=== PATIENT | female | born 1960 | race Caucasian/White ===

== ENCOUNTER 2019-04-30 16:28 | Emergency (ER) | payer OTHER, SELFPAY ==
--- NOTE | 2019-04-30 16:56 | ER ---
Nurse's Notes [facility] Name: Claribel Cuellar Age: 58 yrs Sex: Female : 1960 Arrival Date: 04/30/2019 Time: 16:29 Bed Waiting Private MD: Diagnosis: Presentation: 04/30 16:54 Note Patient states that her nose bleed has stopped so she is going to leave. aj1 ED Course: 16:29 Patient arrived in ED. as Administered Medications: No medications were administered Outcome: 16:55 Patient left the ED. aj1 Signatures: Lana Leonard RN RN aj1 Kerry Gupta
== END 2019-04-30 16:55 | disposition left against medical advice (07) ==
LOC: ER 16:28
DX: Z02.9 Encounter for administrative examinations, unspecified (principal); Z53.21 Procedure and treatment not carried out due to patient leaving prior to being seen by health care provider

== ENCOUNTER 2019-07-06 15:57 | Emergency (ER) | payer OTHER ==
--- OUTSIDE RECORDS SUMMARY | 2019-07-06 15:59 | XMS REPORT ---
:1960 Author Organization eClinicalWorks Care Team Providers Name Role Phone Mo Rigoberto Provider Role Unavailable Allergies, Adverse Reactions, Alerts Substance Reaction Event Type N.K.D.A. Info Not Available Non Drug Allergy Problems Problem Type Condition Code Onset Dates Condition Status Assessment Hyperlipidemia, mixed E78.2 Active Problem BMI 35.0-35.9,adult Z68.35 Active Problem Vitamin D deficiency E55.9 Active Problem Chronic cough R05 Active Problem Current moderate episode of major F32.1 Active depressive disorder without prior episode Problem Nicotine dependence, unspecified, F17.200 Active uncomplicated Problem Hot flashes due to surgical N95.8 Active menopause Problem Epistaxis R04.0 Active Problem Hyperlipidemia, mixed E78.2 Active Assessment Patient noncompliant with statin Z91.14 Active medication Assessment Encounter for dietary counseling Z71.3 Active and surveillance Assessment Hot flashes due to surgical N95.8 Active menopause Assessment Nicotine dependence, unspecified, F17.200 Active uncomplicated Assessment Current moderate episode of major F32.1 Active depressive disorder without prior episode Assessment Vitamin D deficiency E55.9 Active Assessment BMI 35.0-35.9,adult Z68.35 Active Medications Medication Code Code Instructions Start End Status Dosage System Date Date Vitamin D-3 [facility] 89837350791 1000 UNIT Active 1 capsule Orally Once a day Venlafaxine HCl [facility] 89941604946 75 MG Orally Active 2 tablet Once a day with food Vitamin B-12 [facility] 24402912001 100 MCG Orally Active not defined Multivitamin [facility] 15748042865 - Orally Active not Adult defined Lipitor [facility] 17740561574 40 MG Orally Active 1 tablet Once a day Qsymia [facility] 41615365335 15-92 MG Orally Nov 14, Active 1 capsule Once a day 2019 Results No Known Results Summary Purpose eClinicalWorks Submission
--- OUTSIDE RECORDS SUMMARY | 2019-07-06 15:59 | XMS REPORT ---
:1960 Author Organization eClinicalWorks Care Team Providers Name Role Phone HassanLoraineh Provider Role Unavailable Allergies, Adverse Reactions, Alerts [...] Status Dosage System Date Date Vitamin D-3 [facility] 19685151704 1000 UNIT Active 1 capsule Orally Once a day Vitamin B-12 [facility] 02171335215 100 MCG Orally Active not defined Lipitor [facility] 12447981828 40 MG Orally Active 1 tablet Once a day Venlafaxine HCl [facility] 52876413225 75 MG Orally Active 2 tablet Once a day with food Multivitamin [facility] 01074968508 - Orally Active not Adult defined Qsymia [facility] 05802562090 15-92 MG Orally Active 1 capsule Once a day Results No Known Results Summary Purpose eClinicalWorks Submission
--- NOTE | 2019-07-06 16:38 | ER ---
Nurse's Notes [facility] Name: Claribel Cuellar Age: 58 yrs Sex: Female : 1960 Arrival Date: 07/06/2019 Time: 16:00 Bed 5 Private MD: Rigoberto Hassan Diagnosis: Tension-type headache;Neck pain Presentation: 07/06 16:09 Presenting complaint: Patient states: i have had a pain in my neck Wednesday like i pulled tw2 a muscle, but it feels like it has moved up into my head, nothing seems to take it away, except sleeping, my doctor told me to come here to do imaging if i needed it, i just have my last treatment done on my veins, injections on the veins last Wednesday. Transition of care: patient was not received from another setting of care. Onset of symptoms was July 06, 2019. Risk Assessment: Do you want to hurt yourself or someone else? Patient reports no desire to harm self or others. Initial Sepsis Screen: Does the patient meet any 2 criteria? No. Patient's initial sepsis screen is negative. Does the patient have a suspected source of infection? No. Patient's initial sepsis screen is negative. Care prior to arrival: None. 16:09 Method Of Arrival: Ambulatory tw2 16:09 Acuity: KATHIE 3 tw2 16:11 Presenting complaint: Patient states: i take something for hot flashed for my tw2 menopause, i dont know if my hormones are out of whack or what and if that is causing it. 16:12 Presenting complaint: Patient states: i also feel like my head is real heavy like, i tw2 dont really know how to explain it. Triage Assessment: 16:10 General: Appears uncomfortable, well groomed, Behavior is calm, cooperative, tw2 appropriate for age. Pain: Complains of pain in right side of neck and back of head and up to the front of my head. Historical: - Allergies: 16:14 No Known Allergies; tw2 - Home Meds: 16:14 Effexor 150 mg Oral daily [Active]; simvastatin 20 mg Oral tab 1 tab once daily tw2 [Active]; - PMHx: 16:14 Migraines; Hyperlipidemia; tw2 - PSHx: 16:14 endometrial ablation; tw2 - Immunization history:: Adult Immunizations. - Social history:: Smoking status: . - Ebola Screening: : Patient denies travel to an Ebola-affected area in the 21 days before illness onset. Screenin:16 Abuse screen: Denies threats or abuse. Nutritional screening: No deficits noted. tw2 Tuberculosis screening: No symptoms or risk factors identified. Fall Risk None identified. Assessment: 16:20 General: Appears in no apparent distress. uncomfortable, Behavior is calm, cooperative, jl7 appropriate for age. Pain: Complains of pain in neck Pain currently is 9 out of 10 on a pain scale. Neuro: Level of Consciousness is awake, alert, obeys commands, Oriented to person, place, time, situation. Cardiovascular: Patient's skin is warm and dry. Respiratory: Airway is patent Respiratory effort is even, unlabored, Respiratory pattern is regular, symmetrical. Derm: Skin is pink, warm \T\ dry. Vital Signs: 16:11 BP 111 / 97; Pulse 82; Resp 17; Temp 97.5(TE); Pulse Ox 97% on R/A; Weight 86.18 kg tw2 (R); Height 5 ft. 4 in. (162.56 cm) (R); Pain 9/10; 16:11 Body Mass Index 32.61 (86.18 kg, 162.56 cm) tw2 ED Course: 16:00 Patient arrived in ED. mr 16:00 Rigoberto Hassan DO is Private Physician. mr 16:10 Triage completed. tw2 16:10 Arm band placed on. tw2 16:15 Jack Patino FNP-C is [facility]. la1 16:15 Renny Howell MD is Attending Physician. la1 16:16 Bed in low position. Call light in reach. tw2 16:19 Marie Cesar RN is Primary Nurse. jl7 16:46 No provider procedures requiring assistance completed. Patient did not have IV access jl7 during this emergency room visit. Administered Medications: No medications were administered Outcome: 16:36 Discharge ordered by . la1 16:44 Patient left the ED. la1 16:46 Discharged to home ambulatory. jl7 16:46 Condition: stable 16:46 Discharge instructions given to patient, family, Instructed on discharge instructions, follow up and referral plans. medication usage, Demonstrated understanding of instructions, follow-up care, medications, Prescriptions given X 1. Signatures: Prisca Pedraza, Jack, MEDICAL EXAMINER-C MEDICAL EXAMINER-Cla1 Patria Sanchez RN RN tw2 Marie Cesar RN RN jl7 Corrections: (The following items were deleted from the chart) 16:12 16:11 BP 111 / 97; Pulse 82bpm; Resp 17bpm; Pulse Ox 97% RA; Temp 97.5F Temporal; tw2 tw2
--- NOTE | 2019-07-06 16:38 | EDPHYS ---
Physician Documentation [facility] Name: Claribel Cuellar Age: 58 yrs Sex: Female : 1960 Arrival Date: 07/06/2019 Time: 16:00 Bed 5 Private MD: Loraine Hassanh ED Physician Renny Howell HPI: 07/06 16:30 This 58 yrs old Female presents to ER via Ambulatory with complaints of Neck la1 Problem, Headache. 16:30 The patient or guardian complains of pain, that is acute. The symptoms are located on la1 the right trapezius. Onset: The symptoms/episode began/occurred 3 day(s) ago. Context: The problem was sustained at home, The neck injury/problem resulted from from unknown cause. Associated signs and symptoms: Pertinent positives: headache, Pertinent negatives: chills, constipation, fever, bladder incontinence, bowel incontinence, nausea, numbness, tingling, vomiting, weakness. Location: posterior cervical area. Modifying factors: The symptoms are alleviated by nothing. the symptoms are aggravated by movement. Severity of symptoms: At their worst the symptoms were mild, in the emergency department the symptoms are unchanged. The patient has not experienced similar symptoms in the past. Pt reports right trapezius pain that has now radiated to the base of her skull. Historical: - Allergies: 16:14 No Known Allergies; tw2 - Home Meds: 16:14 Effexor 150 mg Oral daily [Active]; simvastatin 20 mg Oral tab 1 tab once daily tw2 [Active]; - PMHx: 16:14 Migraines; Hyperlipidemia; tw2 - PSHx: 16:14 endometrial ablation; tw2 - Immunization history:: Adult Immunizations. - Social history:: Smoking status: . - Ebola Screening: : Patient denies travel to an Ebola-affected area in the 21 days before illness onset. ROS: 16:31 Constitutional: Negative for fever, chills, and weight loss, Eyes: Negative for injury, la1 pain, redness, and discharge, ENT: Negative for injury, pain, and discharge, Neck: + for trapezius pain Cardiovascular: Negative for chest pain, palpitations, and edema, Respiratory: Negative for shortness of breath, cough, wheezing, and pleuritic chest pain, Abdomen/GI: Negative for abdominal pain, nausea, vomiting, diarrhea, and constipation, Back: Negative for injury and pain, MS/Extremity: Negative for injury and deformity, Neuro: Negative for headache, weakness, numbness, tingling, and seizure. Exam: 16:32 Constitutional: This is a well developed, well nourished patient who is awake, alert, la1 and in no acute distress. Head/Face: Normocephalic, atraumatic. ENT: Nares patent. No nasal discharge, no septal abnormalities noted. Mucous membranes moist. 16:32 Chest/axilla: Normal chest wall appearance and motion. Nontender with no deformity. No lesions are appreciated. Cardiovascular: Regular rate and rhythm with a normal S1 and S2. No gallops, murmurs, or rubs. Normal PMI, no JVD. No pulse deficits. Respiratory: Lungs have equal breath sounds bilaterally, clear to auscultation No rales, rhonchi or wheezes noted. No increased work of breathing, no retractions or nasal flaring. Abdomen/GI: Soft, non-tender, with normal bowel sounds. No distension or tympany. No guarding or rebound. No evidence of tenderness throughout. Back: No spinal tenderness. No costovertebral tenderness. Full range of motion. MS/ Extremity: Pulses equal, no cyanosis. Neurovascular intact. Full, normal range of motion. Neuro: Awake and alert, GCS 15, oriented to person, place, time, and situation. Cranial nerves II-XII grossly intact. Motor strength 5/5 in all extremities. Sensory grossly intact. Cerebellar exam normal. Normal gait. 16:32 Neck: External neck: tenderness, of the right mid cervical area and right trapezius, C-spine: appears grossly normal, no acute changes, Trachea: is midline with no obvious abnormalities. Vital Signs: 16:11 BP 111 / 97; Pulse 82; Resp 17; Temp 97.5(TE); Pulse Ox 97% on R/A; Weight 86.18 kg tw2 (R); Height 5 ft. 4 in. (162.56 cm) (R); Pain 9/10; 16:11 Body Mass Index 32.61 (86.18 kg, 162.56 cm) tw2 MDM: 16:15 Patient medically screened. la1 16:33 Data reviewed: vital signs, nurses notes, I have discussed the patient's la1 presentation/case with the attending Emergency Department Physician; and as a result, I will discharge patient. Data interpreted: Pulse oximetry: on room air is 97 %. Interpretation: normal. Counseling: I had a detailed discussion with the patient and/or guardian regarding: the historical points, exam findings, and any diagnostic results supporting the discharge/admit diagnosis, the need for outpatient follow up, a family practitioner. ED course: Pt without concerning focal neurological complaints, denies hx of CA, prolonged steroid use, IV drug use, no midline C-spine tenderness, tenderness to right trapezius area. . Administered Medications: No medications were administered Disposition: 16:54 Co-signature as Attending Physician, Renny Howell MD I agree with the assessment and kdr plan of care. Disposition: 07/06/19 16:36 Discharged to Home. Impression: Tension-type headache, Neck pain. - Condition is Stable. - Discharge Instructions: Muscle Cramps and Spasms, Muscle Pain, Adult. - Prescriptions for Robaxin 500 mg Oral Tablet - take 2 tablets by ORAL route every 6 hours As needed; 25 tablet. - Medication Reconciliation Form, Thank You Letter form. - Follow up: Private Physician; When: 2 - 3 days; Reason: Recheck today's complaints, Re-evaluation by your physician. - Problem is new. - Symptoms are unchanged. Signatures: Renny Howell MD MD [facility] Jack Patino, VP PATIENT-C VP PATIENT-Cla1 Patria Sanchez RN RN tw2 Corrections: (The following items were deleted from the chart) 16:44 16:36 07/06/2019 16:36 Discharged to Home. Impression: Tension-type headache; Neck la1 pain. Condition is Stable. Forms are Medication Reconciliation Form, Thank You Letter, Antibiotic Education, Prescription Opioid Use. Follow up: Private Physician; When: 2 - 3 days; Reason: Recheck today's complaints, Re-evaluation by your physician. Problem is new. Symptoms are unchanged. la1
[2019-07-06 17:08] VITALS: BP 111/97; TEMP 97.5; O2SAT 97
== END 2019-07-06 16:44 | disposition home or self-care (01) ==
LOC: ER 15:57
DX: G44.209 Tension-type headache, unspecified, not intractable (principal); M54.2 Cervicalgia
CPT/HCPCS: 99282

== ENCOUNTER 2020-03-01 11:28 | Emergency (ER) | payer OTHER ==
--- OUTSIDE RECORDS SUMMARY | 2020-03-01 12:30 | XMS REPORT ---
:1960 Author Organization eClinicalWorks Care Team Providers Name Role Phone Mo Rigoberto Provider Role Unavailable Allergies, Adverse Reactions, Alerts Substance Reaction Event Type N.K.D.A. Info Not Available Non Drug Allergy Problems Problem Type Condition Code Onset Dates Condition Statu s Problem Hot flashes due to surgical N95.8 Active menopause Problem BMI 35.0-35.9,adult Z68.35 Active Problem Current moderate episode of major F32.1 Active depressive disorder without prior episode Problem Vitamin D deficiency E55.9 Active Problem Generalized anxiety disorder F41.1 Active Problem Hyperlipidemia, mixed E78.2 Active Problem Nicotine dependence, unspecified, F17.200 Active uncomplicated Problem Chronic cough R05 Active Problem Epistaxis R04.0 Active Assessment Vitamin D deficiency E55.9 Active Assessment Hot flashes due to surgical N95.8 Active menopause Assessment Fatigue, unspecified type R53.83 Ac tive Assessment Patient noncompliant with statin Z91.14 Active medication Assessment Current moderate episode of major F32.1 Active depressive disorder without prior episode Assessment Encounter for dietary counseling Z71.3 Active and surveillance Assessment Nicotine dependence, unspecified, F17.200 Active uncomplicated Assessment Hyperlipidemia, mixed E78.2 Active Assessment BMI 35.0-35.9,adult Z68.35 Active Assessment Generalized anxiety disorder F41.1 Active Medications Medication Code Code Instructions Start End Status Dosage System Date Date Phentermine HCl [facility] 16655006714 37.5 MG Orally Activ e 1 capsule Once a day Vitamin B-12 ND 26877551622 100 MCG Orally Active not defined Venlafaxine HCl ND 81956015763 75 MG Orally Active 2 tablet Once a day with food HydrOXYzine HCl ND 36230280932 25 MG Orally Active 1 tablet every 12 hrs as needed PRN Anxiety Lipitor ND 40700904229 40 MG Orally Active 1 table t Once a day Multivitamin ND 27693286712 - Orally Active not Adult defined Vitamin D-[address] [facility] 48367002139 1000 UNIT Active 1 caps ule Orally Once a day Results No Known Results Summary Purpose eClinicalWorks Submission
--- OUTSIDE RECORDS SUMMARY | 2020-03-01 12:30 | XMS REPORT ---
:1960 Author Organization eClinicalWorks Care Team Providers Name Role Phone Mo Rigboerto Provider Role Unavailable Allergies No Known Allergies Problems Problem Type Condition Code Onset Dates Condition Statu s Problem Hot flashes due to surgical N95.8 Active menopause Problem BMI 35.0-35.9,adult Z68.35 Active Assessment BMI 35.0-35.9,adult Z68.35 Active Problem Current moderate episode of major F32.1 Active depressive disorder without prior episode Problem Vitamin D deficiency E55.9 Active Problem Generalized anxiety disorder F41.1 Active Problem Hyperlipidemia, mixed E78.2 Active Problem Nicotine dependence, unspecified, F17.200 Active uncomplicated Problem Chronic cough R05 Active Problem Epistaxis R04.0 Active Medications Medication Code Code Instructions Start End Status Dosage System Date Date Phentermine HCl [facility] 14027563853 37.5 MG Orally Activ e 1 capsule Once a day Results No Known Results Summary Purpose eClinicalWorks Submission
--- OUTSIDE RECORDS SUMMARY | 2020-03-01 12:30 | XMS REPORT | Continuity of Care Document ---
:1960 Author Organization [facility] t Address [address] [place] [address] Care Team Providers Name Role Phone Unavailable Unavailable Unavailable Problems Condition Condition Condition Status Onset Resolution Last Treating Co mments Source Name Details Category Date Date Treatment Clinician Date Hot Hot Problem Active [facility] - due to due to [facility] surgical surgical l menopause menopause Outp ati ent Clinics BMI BMI Diagnosis Active [facility] 35.0-35.9, 35.0-35.9, Claudia kes - adult adult [facility] Hyperlipid Hyperlipid Problem Active [facility] em[facility], emia, [facility] - mixed mixed [facility] Nicotine Nicotine Problem Active [facility] dependence dependence Claudia kes - , , [facility]oria unspecifie unspecifie l d, d, [facility] uncomplica uncomplica en t obdulia obdulia Clinics Vitamin D Vitamin D Problem Active [facility] deficiency deficiency Claudia kes - [facility] Chronic Chronic Problem Active [facility] cough cough [facility] Epistaxis Epistaxis Problem [facility] Current Current Problem Active [facility] moderate moderate [facility] - episode of episode of Me moria major major l depressive depressive Ou tpati disorder disorder ent without without Clinics prior prior episode episode Generalize Generalize Problem Active [facility] d anxiety d anxiety Luke s - disorder disorder [facility] a l [facility] Allergies, Adverse Reactions, Alerts This patient has no known allergies or adverse reactions. Medications Ordered Filled Start Stop Current Ordering Indication Dosage Frequency Signature Comments Components Source Medication Medication Date Date Medication? Clinician (SIG) Name Name Phentermine Phentermine 2020- No Rigoberto [address] [facility] HCl HCl 4-14 05-14 Hassan [facility] - 00:00: 00:00 [facility] 00 :00 l [facility] Immunizations Ordered Filled Immunization Date Status Comments Sour e Immunization Name Name Flucelvax - Flucelvax - 2019-09-[address] [facility] - multidose vial multidose vial 00:00:00 [facility] Afluria Afluria 2018-08-[address] [facility] - 00:00:00 [facility] PNEUMAVAX 23 PNEUMAVAX 23 2018-08-[address] [facility] - 00:00:00 [facility] Procedures This patient has no known procedures. Encounters Start End Encounter Admission Attending Care Care Encounter Source Date/Time Date/Time Type Type Clinicians Facility Department ID 2020-01-08 2020-01-08 [facility] [id number] [facility] 08:34:00 08:34:00 [facility] Medicine Outpati ent Clinics 2019-12-05 2019-12-05 [facility] [id number] [facility] 10:00:00 10:00:00 [facility] Medicine Medicine Outpati ent Clinics 2019-11-07 2019-11-07 [facility] [id number] [facility] 09:45:00 09:45:00 [facility] Medicine Outpati ent Clinics 2019-09-07 2019-09-07 [facility] [id number] [facility] 08:13:00 08:13:00 [facility] Medicine Outpati ent Clinics 2019-09-05 2019-09-05 [facility] [id number] [facility] 09:30:00 09:30:00 [facility] Medicine Outpati ent Clinics 2019-08-08 2019-08-08 [facility] [id number] [facility] 10:06:00 10:06:00 [facility] Medicine Outpati ent Clinics 2019-06-20 2019-06-20 [facility] [id number] [facility] 11:30:00 11:30:00 [facility] Medicine Outpati ent Clinics 2019-05-09 2019-05-09 [facility] [id number] 09:30:00 09:30:[address] Luke s - Drive [facility] Medicine l Medicine Outpati ent Clinics 2019-04-11 2019-04-11 [facility] [id number] 08:00:00 08:00:[address] Luke s - Drive [facility] Medicine l Medicine Outpati ent Clinics 2019-03-15 2019-03-15 [facility] [id number] [address] 12:17:00 12:17:00 [place] [employer] Luke s - Drive [facility] Medicine l Medicine Outpati ent Clinics 2019-03-14 2019-03-14 [facility] [id number] 09:43:00 09:43:00 [place] [employer] s - Drive [facility] l Medicine Outpati ent Clinics 2019-03-14 2019-03-14 [facility] [id number] 08:00:00 08:00:00 [place] [employer] Luke s - Drive [facility] Medicine l Medicine Outpati ent Clinics 2019-02-07 2019-02-07 [facility] [id number] 09:30:00 09:30:00 [place] [employer] s - Drive [facility] l Medicine Outpati ent Clinics 2018-11-28 2018-11-28 [facility] [id number] [address] 16:56:00 16:56:00 t [place] [employer] s - Drive [facility] Medicine l Medicine Outpati ent Clinics 2018-09-20 2018-09-20 [facility] [id number] [address] 10:30:00 10:30:00 t [place] [employer] s - Drive [facility] Medicine l Medicine Outpati ent Clinics 2018-08-24 2018-08-24 [facility] [id number] [address] 11:30:00 11:30:00 [place] [employer] s - Drive [facility] l Medicine Outpati ent Clinics 2018-07-21 2018-07-21 [facility] [id number] 15:23:00 15:23:00 t [place] [employer] - Drive [facility] Medicine Outpati ent Clinics 2018-07-06 2018-07-06 [facility] [id number] 14:45:00 14:45:00 t [place] [employer] - Drive [facility] Medicine Outpati ent Clinics 2018-06-02 2018-06-02 [facility] [id number] 11:14:00 11:14:00 [place] [employer] s - Drive [facility] Medicine Outpati ent Clinics 2018-04-08 2018-04-08 [facility] [id number] 09:40:00 09:40:00 t [place] [employer] - Drive [facility] Medicine Outpati ent Clinics 2018-04-06 2018-04-06 [facility] [id number] 10:14:00 10:14:00 t [place] Cheyenne [employer] - [employer] [facility] Medicine Outpati ent Clinics 2018-03-22 2018-03-22 [facility] [id number] 08:15:00 08:15:00 t [place] [employer] - Drive [facility] Medicine Outpati ent Clinics 2018-03-01 2018-03-01 [facility] [id number] 09:15:00 09:15:00 t [place] [employer] - Drive [facility] Medicine Outpati ent Clinics 2018-02-08 2018-02-08 [facility] [id number] 08:15:00 08:15:00 t [place] [employer] - Drive [facility] Medicine Outpati ent Clinics 2017-12-07 2017-12-07 [facility] [id number] 08:15:00 08:15:00 t [place] [employer] s - Drive [facility] Medicine Outpati ent Clinics Results This patient has no known results.
[2020-03-01] MEDS ORDERED: IBUPROFEN 400 MG TAB ONE (12:42)
--- NOTE | 2020-03-01 12:54 | RAD REPORT ---
EXAM DESCRIPTION: US - Extremity Venous Uni Ltd - 03/01/2020 12:42 pm CLINICAL HISTORY: PAIN Leg swelling and edema. COMPARISON: No comparisons FINDINGS: Right lower extremity venous system was interrogated with Doppler technique. Normal flow, compressibility and augmentation was noted. There is no DVT present. No evidence of significant Myers 's cyst. IMPRESSION: No evidence of right lower extremity deep venous thrombosis.
--- NOTE | 2020-03-01 13:42 | EDPHYS ---
Physician Documentation [facility] Name: Claribel Cuellar Age: 59 yrs Sex: Female : 1960 Arrival Date: 03/01/2020 Time: 11:31 Bed 17 Private MD: [facility] ED Physician Renny Howell HPI: 03/01 14:49 This 59 yrs old Female presents to ER via Ambulatory with complaints of Knee kdr Pain, Leg Pain. 14:49 The patient presents with decreased range of motion, an injury, pain, that is acute, kdr tenderness. The complaints affect the posterior aspect of right knee. Context: The problem was sustained at home, resulted from an unknown cause, the patient can fully bear weight, the patient is able to ambulate, Usually has discomfort when she first starts to walk but then the pain goes away. After resting for a short period of time, the pain returns. Onset: The symptoms/episode began/occurred gradually, 1 week(s) ago. Modifying factors: The symptoms are alleviated by nothing. the symptoms are aggravated by movement, weight bearing. Associated signs and symptoms: Pertinent positives:. Treatment prior to arrival includes: over the counter medications, NSAIDS. Severity of symptoms: At their worst the symptoms were mild, moderate, just prior to arrival, in the emergency department the symptoms are unchanged. The patient has not experienced similar symptoms in the past. The patient has not recently seen a physician. Historical: - Allergies: 12:20 No Known Allergies; bp - Home Meds: 12:20 simvastatin 20 mg Oral tab 1 tab once daily [Active]; Effexor 150 mg Oral daily bp [Active]; - PMHx: 12:20 Hyperlipidemia; Migraines; Depression; bp - Immunization history:: Adult Immunizations up to date. - Social history:: Smoking status: Patient reports the use of cigarette tobacco products, unknown amount. ROS: 14:49 Constitutional: Negative for fever, chills, and weight loss, Eyes: Negative for injury, kdr pain, redness, and discharge, Neck: Negative for injury, pain, and swelling, Cardiovascular: Negative for chest pain, palpitations, and edema, Respiratory: Negative for shortness of breath, cough, wheezing, and pleuritic chest pain, Abdomen/GI: Negative for abdominal pain, nausea, vomiting, diarrhea, and constipation, Back: Negative for injury and pain, : Negative for injury, bleeding, discharge, and swelling, Skin: Negative for injury, rash, and discoloration, Neuro: Negative for headache, weakness, numbness, tingling, and seizure activity. Psych: Negative for depression, anxiety, suicide ideation, homicidal ideation, and hallucinations, Allergy/Immunology: Negative for hives, rash, and allergies, Endocrine: Negative for neck swelling, polydipsia, polyuria, polyphagia, and marked weight changes, Hematologic/Lymphatic: Negative for swollen nodes, abnormal bleeding, and unusual bruising. 14:49 MS/extremity: Positive for tenderness, of the posterior aspect of right knee. Exam: 14:49 Constitutional: This is a well developed, well nourished patient who is awake, alert, kdr and in no acute distress. Head/Face: Normocephalic, atraumatic. Eyes: Pupils equal round and reactive to light, extra-ocular motions intact. Lids and lashes normal. Conjunctiva and sclera are non-icteric and not injected. Cornea within normal limits. Periorbital areas with no swelling, redness, or edema. Neck: Trachea midline, no thyromegaly or masses palpated, and no cervical lymphadenopathy. Supple, full range of motion without nuchal rigidity, or vertebral point tenderness. No Meningismus. 14:49 Musculoskeletal/extremity: ROM: limited active range of motion, limited passive range of motion, The patient is able to fully straighten the leg with minimal pain but has more pain with flexion . Vital Signs: 12:07 BP 142 / 81; Pulse 75; Resp 17; Temp 97.2; Pulse Ox 97% ; Weight 86.18 kg; Height 5 ft. bp 4 in. (162.56 cm); 13:07 BP 119 / 60; Pulse 65; Resp 17; Pulse Ox 99% ; bp 14:20 BP 119 / 76; Pulse 68; Resp 17; Temp 97.5; Pulse Ox 96% ; bp 12:07 Body Mass Index 32.61 (86.18 kg, 162.56 cm) bp MDM: 13:41 Patient medically screened. kdr 14:49 Data reviewed: vital signs, nurses notes, lab test result(s), radiologic studies. kdr Counseling: I had a detailed discussion with the patient and/or guardian regarding: the historical points, exam findings, and any diagnostic results supporting the discharge/admit diagnosis, radiology results, the need for outpatient follow up. 03/01 12:17 Order name: US Extremity Venous Unilateral Ltd kdr 03/01 12:55 Order name: US; Complete Time: 13:40 EDMS Administered Medications: 12:30 Drug: Ibuprofen 600 mg Route: PO; bp 14:10 Follow up: Response: No adverse reaction; Pain is decreased bp Disposition: 03/01/20 13:41 Discharged to Home. Impression: Pain in right knee. - Condition is Stable. - Discharge Instructions: Musculoskeletal Pain, Knee Pain. - Prescriptions for Tylenol- Codeine #3 300-30 mg Oral Tablet - take 2 tablets by ORAL route every 6 hours As needed; 16 tablet. - Medication Reconciliation Form, Thank You Letter, Prescription Opioid Use form. - Follow up: Rigoberto Hassan DO; When: 2 - 3 days; Reason: If symptoms return, Further diagnostic work-up, Recheck today's complaints, Continuance of care, Re-evaluation by your physician. - Problem is new. - Symptoms have improved. Signatures: Dispatcher [employer] EDMS Renny Howell MD MD kdr Keo Bright, RN RN bp Corrections: (The following items were deleted from the chart) 14:22 13:41 03/01/2020 13:41 Discharged to Home. Impression: Pain in right knee. Condition is bp Stable. Forms are Medication Reconciliation Form, Thank You Letter, Antibiotic Education, Prescription Opioid Use. Follow up: Rigoberto Hassan; When: 2 - 3 days; Reason: If symptoms return, Further diagnostic work-up, Recheck today's complaints, Continuance of care, Re-evaluation by your physician. Problem is new. Symptoms have improved. kdr
--- NOTE | 2020-03-01 13:42 | ER ---
Nurse's Notes [facility] Name: Claribel Cuellar Age: 59 yrs Sex: Female : 1960 Arrival Date: 03/01/2020 Time: 11:31 Bed 17 Private MD: Rigoberto Hassan Diagnosis: Pain in right knee Presentation: 03/01 12:07 Chief complaint: Patient states: SPONTANEOUS R POPLITEAL PAIN x1 WK. Coronavirus bp screen: At this time, the client does not indicate any symptoms associated with coronavirus-19. Ebola Screen: No symptoms or risks identified at this time. Initial Sepsis Screen: Does the patient meet any 2 criteria? No. Patient's initial sepsis screen is negative. Does the patient have a suspected source of infection? No. Patient's initial sepsis screen is negative. Risk Assessment: Do you want to hurt yourself or someone else? Patient reports no desire to harm self or others. Onset of symptoms is unknown. 12:07 Method Of Arrival: Ambulatory bp 12:07 Acuity: KATHIE 4 bp Triage Assessment: 12:20 General: Appears in no apparent distress. uncomfortable, obese, Behavior is bp cooperative, appropriate for age, anxious. Pain: Complains of pain in posterior aspect of right knee. EENT: No deficits noted. Neuro: No deficits noted. Gait is steady. Cardiovascular: No deficits noted. Respiratory: No deficits noted. GI: No signs and/or symptoms were reported involving the gastrointestinal system. : No signs and/or symptoms were reported regarding the genitourinary system. Derm: No deficits noted. Musculoskeletal: Reports pain in posterior aspect of right knee. Historical: - Allergies: 12:20 No Known Allergies; bp - Home Meds: 12:20 simvastatin 20 mg Oral tab 1 tab once daily [Active]; Effexor 150 mg Oral daily bp [Active]; - PMHx: 12:20 Hyperlipidemia; Migraines; Depression; bp - Immunization history:: Adult Immunizations up to date. - Social history:: Smoking status: Patient reports the use of cigarette tobacco products, unknown amount. Screenin:07 Abuse screen: Denies threats or abuse. Denies injuries from another. Nutritional bp screening: No deficits noted. Tuberculosis screening: No symptoms or risk factors identified. Fall Risk None identified. Assessment: 12:07 General: SEE TRIAGE NOTE. bp 12:29 Reassessment: U/S AT B/S. bp 13:07 Reassessment: U/S COMPLETE, INITIAL IMPRESSION UNREMARKABLE. bp 14:20 Reassessment: PT D/C HOME AMBULATORY, DX WITH RIGHT KNEE MUSCULOSKELETAL PAIN. bp Vital Signs: 12:07 BP 142 / 81; Pulse 75; Resp 17; Temp 97.2; Pulse Ox 97% ; Weight 86.18 kg; Height 5 ft. bp 4 in. (162.56 cm); 13:07 BP 119 / 60; Pulse 65; Resp 17; Pulse Ox 99% ; bp 14:20 BP 119 / 76; Pulse 68; Resp 17; Temp 97.5; Pulse Ox 96% ; bp 12:07 Body Mass Index 32.61 (86.18 kg, 162.56 cm) bp ED Course: 11:31 Patient arrived in ED. ag5 11:31 Rigoberto Hassan DO is Private Physician. ag5 11:36 Renny Howell MD is Attending Physician. kdr 12:07 Patient has correct armband on for positive identification. Bed in low position. Call bp light in reach. Side rails up X2. 12:14 Keo Bright, RN is Primary Nurse. bp 12:20 Triage completed. bp 12:20 Arm band placed on. bp 12:34 US Extremity Venous Unilateral Ltd Sent. bp 13:40 Rigoberto Hassan DO is Referral Physician. kdr 14:21 No provider procedures requiring assistance completed. Patient did not have IV access bp during this emergency room visit. Administered Medications: 12:30 Drug: Ibuprofen 600 mg Route: PO; bp 14:10 Follow up: Response: No adverse reaction; Pain is decreased bp Outcome: 13:41 Discharge ordered by . kdr 14:21 Discharged to home ambulatory. bp 14:21 Condition: stable 14:21 Discharge instructions given to patient, Instructed on discharge instructions, follow up and referral plans. medication usage, Demonstrated understanding of instructions, follow-up care, medications, Prescriptions given X 1. 14:22 Patient left the ED. bp Signatures: Renny Howell MD MD kdr Keo Bright, RN RN bp Antonio Brown ag5
[2020-03-01 14:29] VITALS: BP 119/76; TEMP 97.5; O2SAT 96
== END 2020-03-01 14:22 | disposition home or self-care (01) ==
LOC: ER 11:28
DX: M25.561 Pain in right knee (principal); E78.5 Hyperlipidemia, unspecified; F32.9 Major depressive disorder, single episode, unspecified; F17.210 Nicotine dependence, cigarettes, uncomplicated
CPT/HCPCS: 93971; 99283